=== PATIENT | female | born 1975 | race Caucasian/White ===

== ENCOUNTER 2020-10-10 10:31 | Outpatient (CLI) | payer OTHER | END 2020-10-10 10:32 | disposition home or self-care (01) | LOC: CSHMAMMO 10:31 | PROVIDERS: ATTEND Family Medicine | DX: Z12.31 Encounter for screening mammogram for malignant neoplasm of breast (principal); Z98.82 Breast implant status | CPT/HCPCS: 77067 ==

== ENCOUNTER 2022-02-18 09:52 | Day surgery (SDC) | payer OTHER ==
[2022-02-16 16:09] VITALS: BMI 21.2
[2022-02-18] MEDS ORDERED: Bupivacaine PF 0.5% 30 ML VIAL ONE (10:22)
[2022-02-18] MEDS ORDERED: Neomycin-Polymyxin 1 ML AMP ONE (10:23)
[2022-02-18] MEDS ORDERED: Acetaminophen 500 MG TAB ONE (10:55)
[2022-02-18] MEDS ORDERED: CEFAZOLIN 2 GM VIAL ONE (11:39)
[2022-02-18] MEDS ORDERED: PROPOFOL 20 ML ONE (11:43)
[2022-02-18] MEDS ORDERED: Lidocaine 1% (PF) 30 ML VIAL ONE (11:43)
[2022-02-18] MEDS ORDERED: Fentanyl 100 MCG/2 ML VIAL ONE (11:43)
[2022-02-18] MEDS ORDERED: Dexamethasone 20 MG/5 ML VIAL ONE (12:01)
[2022-02-18] MEDS ORDERED: Ondansetron PF 4 MG/2 ML Vial ONE (12:01)
== END 2022-02-18 14:00 | disposition home or self-care (01) ==
LOC: CSHSDC 09:52
PROVIDERS: ATTEND Podiatrist Foot & Ankle Surgery
PROC: 0QSQ04Z Reposition Right Toe Phalanx with Internal Fixation Device, Open Approach (ICD-10-PCS; principal; 2022-02-18)
PROC: 0QSN04Z Reposition Right Metatarsal with Internal Fixation Device, Open Approach (ICD-10-PCS; principal; 2022-02-18)
DX: M20.11 Hallux valgus (acquired), right foot (principal); M20.5X1 Other deformities of toe(s) (acquired), right foot
CPT/HCPCS: C1713; C1776; J1100; J2001; J2405; J2704; J3010; S0020

== ENCOUNTER 2024-04-05 07:50 | Emergency (ER) | payer MEDICARE, MEDICAID ==
[2024-04-05] MEDS ORDERED: Dexamethasone 10 MG/ML VIAL ONE (08:29)
== END 2024-04-05 08:47 | disposition home or self-care (01) ==
LOC: CSHERS 07:50
DX: T78.40XA Allergy, unspecified, initial encounter (principal); F17.210 Nicotine dependence, cigarettes, uncomplicated
CPT/HCPCS: 96372; 99283; J1100

== ENCOUNTER 2025-01-07 07:52 | Emergency (ER) | payer MEDICAID, MEDICARE ==
[2025-01-08] MEDS ORDERED: Acetaminophen 500 MG TAB ONE (10:14)
== END 2025-01-07 08:13 ==
LOC: CSHERS 07:52
DX: Z53.21 Procedure and treatment not carried out due to patient leaving prior to being seen by health care provider (principal)

== ENCOUNTER 2025-01-08 07:32 | Emergency (ER) | payer MEDICARE ==
[2025-01-08 08:06] LABS: #Basophils Less than 0.03 10x3/uL (0.0-0.2); #Eosinophils 0.07 10x3/uL (0.0-0.5); #Monocytes 0.46 10x3/uL (0.0-1.1); #Neutrophils 4.52 10x3/uL (1.5-8.4); %Basophils 0.3 % (0.0-2.0); %Eosinophils 1.0 % (0.0-6.0); %Lymphocytes 24.6 % (18.0-47.0); %Monocytes 6.8 % (0.0-10.0); %Neutrophils 66.9 % (40.0-75.0); Hematocrit 37.8 % (34.9-44.5); Hemoglobin 12.6 g/dL (12.0-15.5); Mean Corpuscular Hemoglobin 31.7 pg (27.0-33.0); Mean Corpuscular Volume 95.2 fL (81.6-98.3); Platelet Count 287 10x3/uL (150-450); Red Blood Cell (RBC) Count 3.97 10x6/uL (3.90-5.03); White Blood Cell (WBC) Count 6.76 10x3/uL (3.5-10.5)
[2025-01-08 08:07] LABS: Glucose, Urine (Dipstick) Normal (Negative); Leukocyte 25 (Negative); Protein, Urine (Dipstick) Negative (Neg-Trace); Specific Gravity, Urine 1.010 (1.005-1.030)
[2025-01-08] MEDS ORDERED: Ketorolac Tromethamine 30 MG (1 mL) VIAL ONE (08:17)
[2025-01-08 08:21] LABS: BHCG - Serum Negative (NEGATIVE); Bacteria/HPF 3+ HPF (None Seen); CAUTI Indications for Culture Pelvic or flank pain; Pregs Control Background? CLEAR/WHITE (CLR/WHITE); Pregs Control Bar Appear? YES (CONTROL BAR); RBC/HPF 0-3 HPF (0-3); WBC/HPF 0-3 HPF (0-3)
[2025-01-08 08:22] LABS: Urine Culture Reflex No No
[2025-01-08 08:26] LABS: AST (SGOT) 24 U/L (11-34); Albumin 4.3 g/dL (3.1-4.5); Alkaline Phosphatase 47 U/L (40-110); Anion Gap 12 mmol/L (10-20); BUN (Urea Nitrogen) 9 mg/dL (7.0-18.7); Bilirubin, Total 0.3 mg/dL (0.3-1.2); Calc. Creatinine Clearance 0 mL/min (70-130); Calcium 9.4 mg/dL (7.8-10.44); Carbon Dioxide 23 mmol/L (22-29); Chloride 109 mmol/L (98-107); Globulin 2.9 g/dL (2.4-3.5); Glucose 111 mg/dL (70-105); Potassium 3.7 mmol/L (3.5-5.1); Sodium 140 mmol/L (136-145)
[2025-01-08 08:41] LABS: ALT (SGPT) 17 U/L (Less than 34)
[2025-01-08] MEDS ORDERED: Iopamidol 300 61% 100 ML VIAL FS ONE (11:43)
== END 2025-01-08 10:14 | disposition home or self-care (01) ==
LOC: CSHERS 07:32
DX: M54.50 Low back pain, unspecified (principal); N28.1 Cyst of kidney, acquired; N83.201 Unspecified ovarian cyst, right side; K76.9 Liver disease, unspecified; F17.210 Nicotine dependence, cigarettes, uncomplicated; Z55.6 Problems related to health literacy
CPT/HCPCS: 74177; 80053; 81001; 83690; 84703; 85025; 87086; J1885; 96374; Q9967